=== PATIENT | male | born 1995 | race Caucasian/White ===

== ENCOUNTER 2024-02-17 08:27 | Emergency (ER) | payer BC, SELFPAY ==
[2024-02-17 08:28] VITALS: BP 132/77; PULSE 79; RESP 18; TEMP 36.2; O2SAT 100; BMI 25.2
[2024-02-17 08:32] VITALS: BP 132/77; PULSE 79; RESP 18; TEMP 36.2; O2SAT 100
--- NOTE | 2024-02-17 08:59 | EX.ED.UPPERE ---
HPI History of Present Illness Chief Complaint: Wound Narrative Narrative: 28-year-old male with redness and swelling to the left medial elbow. He noticed it on . He cannot recall any history of trauma to the area or bite. He states it was just a little red initially. He notes that it was more painful today and he notes some streaking up the medial aspect of his arm on the left. Patient states he does have any trouble moving his elbow except in full extension. He has not had any fever. Systemically he feels well. No significant medical history. PFSH PFSH Medical History no medical history Home Medications cephalexin 500 mg capsule 500 mg PO Q12 7 days #14 CAPSULES 02/17/24 [Rx Last Taken Unknown] sulfamethoxazole 800 mg-trimethoprim 160 mg tablet (Bactrim DS) 1 tab PO BID #14 tabs 02/17/24 [Rx Last Taken Unknown] Allergy/AdvReac Type Severity Reaction Status Date / Time No Known Allergies Allergy Verified 02/17/24 08:27 Social History Smoking Status: Never smoker ROS ROS ED Constitutional Constitutional ED: Denies chills, fever(s) or sweats Eyes Eyes: Denies blurry vision or change in vision ENT ENT ED: Denies ear pain or sore throat Cardiovascular Cardiovascular: Denies chest pain, palpitations or racing heartbeat Respiratory/Chest Respiratory/Chest: Denies cough, dyspnea or sputum Gastrointestinal Gastrointestinal: Denies abdominal pain, constipation, diarrhea, nausea or vomiting Genitourinary Genitourinary ED: Denies dysuria, hematuria or urinary frequency Musculoskeletal Musculoskeletal: Denies arthralgias, myalgias or neck pain Integumentary Reports rash; Denies abscess or Abrasions Neurologic Neurologic: Denies headache(s), paresthesias or weakness Psychiatric Psychiatric: Denies anxiety, depression, suicidal ideation or suicidal thoughts Endocrine Endocrinology: Denies polydipsia or polyuria EXAM Physical Exam Const Vital Signs: 02/17/24 08:28 02/17/24 08:32 Temperature 97.1 F L 97.1 F L Temperature Source Temporal Temporal Pulse Rate 79 79 Respiratory Rate 18 18 Blood Pressure 132/77 H 132/77 H Blood Pressure Mean 95 95 Pulse Ox 100 100 Oxygen Delivery Method Room Air Room Air Positive well nourished General Appearance ED: NAD HEENT Reports moist mucous membranes normocephalic Eyes PERRL and EOMs intact bilaterally Resp normal respiratory effort Cardio regular rate and regular rhythm Neuro oriented x3, CN's II-XII intact bilaterally, moves all extremities and no focal motor deficits Skin Skin Narrative: Erythematous rash noted over the medial aspect of the left elbow. This is just medial to the bursa. Patient has no short arc range of motion difficulties with the left elbow. There is lymphangitic streaking noted from the medial aspect of the elbow up into the brachial region. Mildly tender. There are some tender lymph nodes in this area. There is none in the axilla. Left arm neurovascular intact brisk cap refill to all 5 fingers. MDM MDM MDM Narrative Medical decision making narrative: Patient presenting with rash and pain to the left elbow. It does not appear to be infected joint he is moving it without any difficulty. He does not appear to be a part of the bursa. This started on and is progressed. Does not any systemic signs or symptoms. Will obtain a CBC, BMP, ESR, CRP. Patient given Toradol. Patient CBC shows a normal white blood cell count 5.2. Below 14.9. Platelets normal 171. Renal function and electrolytes are normal. CRP minimally elevated at 4.15. ESR less than 1. X-ray of the left elbow my interpretation shows no acute process. Radiology interprets and agrees. Patient given a dose of Zosyn in the ER. He is given Bactrim and Keflex for home. Wound care instructions and return precautions were discussed at length. Impression: 1. Cellulitis left elbow Lab Data Attestation: I reviewed the patient's lab results. Discharge Plan Triage Chief Complaint: Wound ED Provider: David Lubin Dx/Rx/DC Orders Instructions: ED Cellulitis Prescriptions: New sulfamethoxazole-trimethoprim [Bactrim DS] 800-160 mg tablet 1 tab PO BID Qty: 14 0RF cephalexin 500 mg capsule 500 mg PO Q12 7 Days Qty: 14 0RF Stand Alone Forms: ED Work / School Excuse Primary Care Provider: Care Physician,No Primary Referrals: NOT,DEFINED [Non-Staff] - Disposition Disposition: Home, Self Care Discharge Date/Time: 02/17/24 11:39
--- NOTE | 2024-02-17 09:00 | RAD_ITS ---
HISTORY: redness and swelling. TECHNIQUE: XR Elbow Min 3 Views. COMPARISON: None. FINDINGS: BONES : No acute fracture or cortical erosion identified. Small bone island incidentally noted in the capitellum. JOINTS: No dislocation. Joint spaces maintained. RAD/Elbow min 3 Views IMPRESSION: No acute osseous abnormality identified in the left elbow. Electronically Signed: Makenna Martin MD at 9:33 EDT ,
[2024-02-17 09:06] LABS: Absolute Lymphocyte Count 0.88 X10^3/uL (0.83-4.51); Absolute Neutrophil Count 3.7 X10^3/uL (2.0-7.7); Basophil# 0.03 X10^3/uL; Basophil% 0.6 % (0-1); Eosinophil# 0.05 X10^3/uL; Hematocrit 43.4 % (40-54); Hemoglobin 14.9 g/dL (13.0-16.5); Lymphocyte # 0.88 X10^3/ul (0.83-4.51); Lymphocyte % 16.9 % (19-41); Mean Corp Hgb Conc 34.3 g/dL (32-36); Mean Corpuscular Hgb 30.2 pg (27.0-32.0); Mean Platelet Vol. 10.3 fl (6.2-12.0); Monocyte# 0.51 X10^3/uL; Monocyte% 9.8 % (0-10); NRBC Flagged by Analyzer 0 % (0-5); Neutrophil # 3.72 X10^3/uL (2.7-7.7); Neutrophil % 71.5 % (47-70); Platelet Count 171 K/mm3 (150-450); RBC Distribution Width CV 11.9 % (11.6-14.6); RBC Distribution Width SD 38.5 fl (35.1-43.9); Red Blood Count 4.93 M/mm3 (4.6-6.2); White Blood Count 5.2 K/mm3 (4.4-11.0)
[2024-02-17 09:11] LABS: Erythrocyte Sedimentation Rate < 1 mm/hr (0-20)
[2024-02-17] MEDS: Ketorolac 15 MG/ML Vial IV (09:13)
[2024-02-17 09:18] LABS: Anion Gap 4 (5-15); BUN 19 mg/dL (7-18); BUN/Creat Ratio 20.9 RATIO (10-20); CRP 4.15 mg/L (0.0-3.0); Calcium,Total 8.9 mg/dL (8.5-10.1); Chloride 105 mmol/L (98-107); Creatinine, Serum 0.91 mg/dL (0.70-1.30); EST Glomerular Filtration Rate 104 mL/min (>60); Est Glom Filt Rate - Afr Amer 126 mL/min (>60); Estimated Creatinine Clearance 145.73 ml/min; Glucose 100 mg/dL (74-106); Potassium 3.8 mmol/L (3.5-5.1); Sodium Level 138 mmol/L (136-145)
[2024-02-17] MEDS: Piperacil/Tazobactam 3.375 GM in 0.9% Normal Saline (50mL MB+) 50 ML IV (10:14)
[2024-02-17 10:16] VITALS: BP 117/70; PULSE 50; RESP 16; O2SAT 100
[2024-02-17 11:38] VITALS: BP 111/76; PULSE 54; RESP 16; TEMP 36.2; O2SAT 100
== END 2024-02-17 11:39 | disposition home or self-care (01) ==
PROVIDERS: Emergency Provider Student in an Organized Health Care Education/Training Program; Visit Provider Student in an Organized Health Care Education/Training Program
DX: L03.114 Cellulitis of left upper limb (principal)
CPT/HCPCS: 73080; 80048; 85025; 85652; 86140; 96365; 96366; 96375; 99283; J7030; A4216

== ENCOUNTER 2025-02-12 19:31 | Emergency (ER) | payer BC, SELFPAY ==
[2025-02-12 19:32] VITALS: BP 141/88; PULSE 61; RESP 15; TEMP 36.4; O2SAT 100; BMI 25.2
--- NOTE | 2025-02-12 20:11 | US_ITS ---
PROCEDURE: TESTICULAR WITH ARTERIAL FLOW 02/12/2025 REASON FOR EXAM: LEFT TESTIC PAIN TECHNIQUE: Woodruff scale imaging of the scrotal contents. COMPARISON: None FINDINGS: RIGHT testicle: 5.5 x 3.3 x 3.0 cm Homogeneous echotexture. Normal vascularity. No intratesticular mass. Right epididymis: Unremarkable. LEFT testicle: 4.8 x 3.4 x 2.8 cm Homogeneous echotexture. Normal vascularity. No intratesticular mass. Left epididymis: Slightly heterogenous echotexture. Other findings: No hydrocele or large varicocele. US/Testicular with Arterial Flow IMPRESSION: NORMAL SCROTAL ULTRASOUND. Reading Location: [facility]
--- NOTE | 2025-02-12 20:11 | EX.ED.GUMALE ---
HPI History of Present Illness Chief Complaint: Male Pain/Injury Informant: patient and spouse/S.O. Narrative Narrative: 29-year-old male gradual onset left testicular pain for the last couple days. No problems urinating. No abdominal pain or flank pain or back pain with this. He woke up in a sweat feeling like maybe had a fever last couple nights, but felt fine during the day. He noticed that when he had on his boxer briefs the pain was less then when he was in the shower. No recent injury, but that is the sort of sensation he is having in his left testicle. No nausea or vomiting. No colicky nature of the pain. Never had this before. He states the small lump on top of the testicle feels like the area that the pain is coming from. PFSH PFSH Medical History no medical history no medical history Home Medications ?Medication ?Instructions ?Recorded ?Last Taken ?Type doxycycline monohydrate 100 mg 100 mg PO BID #20 CAPSULES 02/12/25 Unknown Rx capsule Allergy/AdvReac Type Severity Reaction Status Date / Time No Known Allergies Allergy Verified 02/12/25 19:32 Social History Smoking Status: Never smoker ROS ROS ED Constitutional Constitutional ED: Reports chills and sweats; Denies fever(s) Cardiovascular Cardiovascular: Denies chest pain Respiratory/Chest Respiratory/Chest: Denies dyspnea Gastrointestinal Gastrointestinal: Denies abdominal pain, nausea or vomiting Genitourinary Genitourinary ED: Reports scrotal pain; Denies dysuria, hematuria, penile discharge, penile swelling, scrotal swelling or urinary frequency Musculoskeletal Musculoskeletal: Denies back pain or neck pain Integumentary Denies abscess or rash Neurologic Neurologic: Denies headache(s), paresthesias or weakness EXAM Physical Exam Const Vital Signs: 02/12/25 19:32 02/12/25 20:57 Temperature 97.5 F L Temperature Source Temporal Pulse Rate 61 79 Respiratory Rate 15 18 Blood Pressure 141/88 H 138/81 H Blood Pressure Mean 105 100 Pulse Ox 100 100 Oxygen Delivery Method Room Air Room Air Positive well nourished and well developed General Appearance ED: well developed and NAD Eyes PERRL and EOMs intact bilaterally Neck supple Resp normal respiratory effort GI non-tender and non-distended Narrative: Examined patient while standing. There is no direct or indirect hernia. The testicle itself on both sides is nontender, there is a soft tender lump that feels like it is on the top and posterior aspect of the left testicle. Does not necessarily feel like a bag of worms. No blue dot sign. Back/Spine no CVA tenderness Extremity normal to inspection Neuro oriented x3, CN's II-XII intact bilaterally, moves all extremities, no focal motor deficits and no sensory deficits noted Psych mental status grossly normal Skin Lesions: no lesions Rashes: no rashes MDM MDM MDM Narrative Medical decision making narrative: Clinically my suspicion is that he has acute epididymitis. He is here with his significant other and is monogamous no history of gonorrhea chlamydia so I think that is less likely and testing for it is not necessary at this time. However in discussing more, he states it is possible that there is a small lump there that was not there before. For this reason I think obtaining a stat ultrasound is reasonable. Differential includes varicocele, hydrocele, epididymitis, less likely torsion or orchitis. I reviewed the ultrasound imaging as well as report which I agree with, it is essentially normal, noting that the left epididymis is slightly heterogeneous in echotexture. The most important part of the ultrasound is that there were no hydrocele or varicocele seen and the testes are normal. Patient reassured, clinically and treating him for epididymitis with doxycycline and we will fill the prescription here for him to start it tonight. He was also given some ibuprofen he is comfortable with this plan and following up with urology if it does not get better. Lab Data Attestation: I reviewed the patient's lab results. Labs: Laboratory Results - last 24 hr 02/12/25 20:01 Urine Color Yellow Urine Clarity Clear Urine pH 5.0 Ur Specific [place] 1.025 Urine Protein 30 H Urine Glucose (UA) Normal Urine Ketones 5 H Urine Occult Blood Negative Urine Nitrite Negative Urine Bilirubin Negative Urine Urobilinogen 1 H Ur Leukocyte Esterase Negative Urine RBC 0 SEEN Urine WBC 0-5 SEEN Ur Squamous Epith Cells 0-5 SEEN Urine Bacteria 0 SEEN Urine Mucus 0 SEEN Radiography Diagnostic Testing: Clinical Impression(s) from Imaging Studies Testicular Ultrasound 02/12/25 20:11 IMPRESSION: NORMAL SCROTAL ULTRASOUND. Reading Location: [facility] Discharge Plan Triage Chief Complaint: Male Pain/Injury ED Provider: Jagjit Cuellar Dx/Rx/DC Orders Clinical Impression: Left epididymitis Instructions: Epididymitis Dc Prescriptions: New doxycycline monohydrate 100 mg capsule 100 mg PO BID Qty: 20 0RF Discontinued sulfamethoxazole-trimethoprim [Bactrim DS] 800-160 mg tablet 1 tab PO BID Qty: 14 0RF cephalexin 500 mg capsule 500 mg PO Q12 7 Days Qty: 14 0RF Primary Care Provider: Care Physician,No Primary Referrals: Marcial Olmos MD [[facility] Staff - Active Staff] - 1 Week if not improving Print Language: Mosotho Disposition Disposition: Home, Self Care
[2025-02-12 20:26] LABS: Bacteria 0 SEEN /hpf (None Seen); Mucous, Urine 0 SEEN /hpf (<or=2+); Red Blood Cells-Urine 0 SEEN /hpf (0-5)
[2025-02-12 20:31] LABS: Color, Urine Yellow (Yellow); Glucose, Dipstick Normal (Normal); Ketone-Dipstick 5 mg/dl (Negative); Leukocyte Esterase-Dipstick Negative /ul (Negative); Nitrite-Dipstick Negative (Negative); Occult Blood-Urine Negative /ul (Negative); Protein-Dipstick 30 mg/dl (Negative); Specific Gravity, Urine 1.025 (1.002-1.030); Urine Bilirubin Dipstick Negative (Negative); Urine Clarity Clear (Clear); Urine Urobilinogen 1 mg/dl (Normal)
[2025-02-12 20:54] LABS: Squamous Epithelial Cells - UA 0-5 SEEN /hpf (0-5); White Blood Cells 0-5 SEEN /hpf (0-5)
[2025-02-12 20:57] VITALS: BP 138/81; PULSE 79; RESP 18; O2SAT 100
[2025-02-12] MEDS: Ibuprofen 600 MG Tablet PO (21:50)
[2025-02-12 21:53] VITALS: BP 132/78; PULSE 77; RESP 18; TEMP 36.8; O2SAT 100
== END 2025-02-12 22:12 | disposition home or self-care (01) ==
PROVIDERS: Emergency Provider Emergency Medicine; Visit Provider Emergency Medicine
DX: N45.1 Epididymitis (principal)
CPT/HCPCS: 76870; 81001; 93976; 99282

== ENCOUNTER → 2025-03-30 | Outpatient (CLI) | payer BC, SELFPAY ==
--- OUTSIDE RECORDS SUMMARY | 2025-03-30 10:05 | XMS RPT_ITS | CCD ---
Author Organization [facility] Care Team Providers Care Ranch Hand Supervisor Name Role Phone Unavailable Primary Care Provider Unavailabl e Care Physician, No Primary Referring Unava ilJosé Pedersen Attending Unavailable Care Physician, No Primary Primary Care Unava ilable Care Physician, No Primary Primary Care Unava ilable Jagjit Cuellar Attending Unavailable Medications Current Medications Medication Drug Class(es) Dates Sig (Normalized) Sig (Original) cephalexin 500 mg oral capsule (1 source) Cephalosporin Antibacterial Start: 02-17-2024 take 500 mg by mouth every twelve hours Cephalexin Active 500 MG PO EVERY 12 HOURS 14 February 17, 2024 12:00am esomeprazole 40 mg delayed release oral capsule (1 source) Proton Pump Inhibitor Start: 10-29-2020 take 1 capsule by mouth once daily before breakfast esomeprazole (NEXIUM) 40 mg capsule Indications: Chest pain, unspecified type , SOB (shortness of breath) Take 1 capsule by mouth daily before breakfast. 30 capsule 2 10/29/2020 Active sulfamethoxazole 800 mg / trimethoprim 160 mg oral tablet (1 source) Dihydrofolate Reductase Inhibitor Antibacterial, Sulfonamide Antimicrobial Start: 02-17-2024 take 1 tablet by mouth twice daily Sulfamethoxazole- Trimethoprim (Bactrim Ds) 800-160 mg tablet Active 1 TABLET PO TWICE A DAY February 17, 2024 12:00am SUMAtriptan 50 mg oral tablet (1 source) Serotonin-1b and Serotonin-1d Receptor Agonist Start: 09-05-2019 SUMAtriptan (IMITREX) 50 mg tablet Take 50 mg by mouth as needed. 0 09/05/2019 Active Problems Active Problems Problem Classification Problem Date Documented Da te Episodic/Chronic Headache; including migraine (1 source) Migraine; Translations: [Migraine, unspecified, not intractable, without status migrainosus] Onset: 11-18-2019 11-18-2019 Chronic Other male genital disorders (1 source) Left testicular pain; Translations: [Left testicular pain] Onset: 02-16-2025 Episodic Skin and subcutaneous tissue infections (1 source) Infection of skin; Translations: [Local infection of the skin and subcutaneous tissue, unspecified] 02-17-2024 Episodic Past or Other Problems Problem Classification Problem Date Documented Da te Episodic/Chronic Nonspecific chest pain (1 source) Chest pain; Translations: [Chest pain, unspecified] Onset: 09-29-2020 09-29-2020 Episodic Other skin disorders (1 source) Scar; Translations: [Scar conditions and fibrosis of skin] Onset: 04-01-2014 04-01-2014 Episodic Other skin disorders (1 source) Acne; Translations: [Acne, unspecified] Onset: 04-01-2014 04-01-2014 Episodic Spondylosis; intervertebral disc disorders; other back problems (1 source) Low back pain; Translations: [Right-sided low back pain without sciatica] Onset: 05-27-2015 05-27-2015 Episodic Results Test Name Value Interpretation Reference Range Facility Emergency Department Summary on 02-12-2025 Emergency Department Summary [facility] Medical Records Department [address] [place] [address] Emergency Department Summary 02/12/25 MR#: [id number] Acct: [id number] Name: TIFFANIE BRAVO Rep #: [id number] : 1995 29 From: Jagjit Cuellar MD PCP: Care Physician,No Primary Status:REG ER Location: ED HPI History of Present Illness Chief Complaint: Male Pain/Injury Informant: patient and spouse/S.O. Narrative Narrative: 29-year-old male gradual onset left testicular pain for the last couple days. No problems urinating. No abdominal pain or flank pain or back pain with this. He woke up in a sweat feeling like maybe had a fever last couple nights, but felt fine during the day. He noticed that when he had on his boxer briefs the pain was less then when he was in the shower. No recent injury, but that is the sort of sensation he is having in his left testicle. No nausea or vomiting. No colicky nature of the pain. Never had this before. He states the small lump on top of the testicle feels like the area that the pain is coming from. [facility] Medical History no medical history no medical history Home Medications ???Medication ???Instructions ???Recorded ???Last Taken ???Type doxycycline monohydrate 100 mg 100 mg PO BID #20 CAPSULES 5 Unknown Rx capsule Allergy/AdvReac Type Severity Reaction Status Date / Time No Known Allergies Allergy Verified 02/12/25 19:32 Social History Smoking Status: Never smoker ROS ROS ED Constitutional Constitutional ED: Reports chills and sweats; Denies fever(s) Cardiovascular Cardiovascular: Denies chest pain Respiratory/Chest Respiratory/Chest: Denies dyspnea Gastrointestinal Gastrointestinal: Denies abdominal pain, nausea or vomiting Genitourinary Genitourinary ED: Reports scrotal pain; Denies dysuria, hematuria, penile discharge, penile swelling, scrotal swelling or urinary frequency Musculoskeletal Musculoskeletal: Denies back pain or neck pain Integumentary Denies abscess or rash Neurologic Neurologic: Denies headache(s), paresthesias or weakness EXAM Physical Exam Const Vital Signs: 02/12/25 19:32 02/12/25 20:57 Temperature 97.5 F L Temperature Source Temporal Pulse Rate 61 79 Respiratory Rate 15 18 Blood Pressure 141/88 H 138/81 H Blood Pressure Mean 105 100 Pulse Ox 100 100 Oxygen Delivery Method Room Air Room Air Positive well nourished and well developed General Appearance ED: well developed and NAD Eyes PERRL and EOMs intact bilaterally Neck supple Resp normal respiratory effort GI non-tender and non-distended Narrative: Examined patient while standing. There is no direct or indirect hernia. The testicle itself on both sides is nontender, there is a soft tender lump that feels like it is on the top and posterior aspect of the left testicle. Does not necessarily feel like a bag of worms. No blue dot sign. Back/Spine no CVA tenderness Extremity normal to inspection Neuro oriented x3, CN's II-XII intact bilaterally, moves all extremities, no focal motor deficits and no sensory deficits noted Psych mental status grossly normal Skin Lesions: no lesions Rashes: no rashes MDM MDM MDM Narrative Medical decision making narrative: Clinically my suspicion is that he has acute epididymitis. He is here with his significant other and is monogamous no history of gonorrhea chlamydia so I think that is less likely and testing for it is not necessary at this time. However in discussing more, he states it is possible that there is a small lump there that was not there before. For this reason I think obtaining a stat ultrasound is reasonable. Differential includes varicocele, hydrocele, epididymitis, less likely torsion or orchitis. I reviewed the ultrasound imaging as well as report which I agree with, it is essentially normal, noting that the left epididymis is slightly heterogeneous in echotexture. The most important part of the ultrasound is that there were no hydrocele or varicocele seen and the testes are normal. Patient reassured, clinically and treating him for epididymitis with doxycycline and we will fill the prescription here for him to start it tonight. He was also given some ibuprofen he is comfortable with this plan and following up with urology if it does not get better. Lab Data Attestation: I reviewed the patient's lab results. Labs: Laboratory Results - last 24 hr 02/12/25 20:01 Urine Color Yellow Urine Clarity Clear Urine pH 5.0 Ur Specific [place] 1.025 Urine Protein 30 H Urine Glucose (UA) Normal Urine Ketones 5 H Urine Occult Blood Negative Urine Nitrite Negative Urine Bilirubin Negative Urine Urobilinogen 1 (more content not included)... Normal [facility] Testicular with Arterial Keron won 02-12-2025 Testicular with Arterial Flow [facility] Imaging Services [address] [place], [place] [address] Testicular with Arterial Flow MR#: [id number] Acct: [id number] Name: TIFFANIE BRAVO Rep #: [id number] : 1995 M 29 From: Daniel bravo MD PCP: Care Physician,No Primary Status: REG ER Study: Testicular with Arterial Flow Date of Exam: Exam# [id number] Ordering Dr: Jagjit Cuellar MD PROCEDURE: TESTICULAR WITH ARTERIAL FLOW 02/12/2025 REASON FOR EXAM: LEFT TESTIC PAIN TECHNIQUE: Woodruff scale imaging of the scrotal contents. COMPARISON: None FINDINGS: RIGHT testicle: 5.5 x 3.3 x 3.0 cm Homogeneous echotexture. Normal vascularity. No intratesticular mass. Right epididymis: Unremarkable. LEFT testicle: 4.8 x 3.4 x 2.8 cm Homogeneous echotexture. Normal vascularity. No intratesticular mass. Left epididymis: Slightly heterogenous echotexture. Other findings: No hydrocele or large varicocele. US/Testicular with Arterial Flow IMPRESSION: NORMAL SCROTAL ULTRASOUND. [facility] CC: Dr. Jagjit Cuellar MD; No Primary Care Physician Truss Builder: Signed Normal [facility] Urinalysis, Completeon 02-12 EPI,SQUAMOUS 0-5 SEEN Normal 0-5 [facility] Comment on above: Order Comment: CLEAN CATCH Performed By: #### L [id number] #### [facility] [address] [place], [address] WBC 0-5 SEEN Normal 0-5 [facility] Comment on above: Order Comment: CLEAN CATCH Performed By: #### L [id number] #### [facility] [address] [place], [address] BACTERIA 0 SEEN Normal None Seen [facility] Comment on above: Order Comment: CLEAN CATCH Performed By: #### L 400.0001 #### [facility] [address] [place], [address] Mucus Ql (Urine sed) 0 SEEN Normal [facility] Comment on above: Order Comment: CLEAN CATCH Performed By: #### L 400.0001 #### [facility] [address] [place], [address] RBC 0 SEEN Normal 0-5 [facility] Comment on above: Order Comment: CLEAN CATCH Performed By: #### L 400.0001 #### [facility] [address] [place], [address] Absolute lymphocyte countOrd ered By: David Lubin on 02-17-2024 Lymphocytes Auto (Unsp spec) [#/Vol] 0.88 10*3/uL 0.83-4.51 [facility] Automated lymphocyte count a s percentage of total leukocytesOrdered By: David Lubin on 02-17-2024 Lymphocytes/100 WBC Auto (Unsp spec) 16.9 % 19-41 [facility] Basophil percentageOrdered B y: David Lubin on 02-17-2024 Basophils/100 WBC (Bld) 0.6 % 0-1 [facility] Chloride [Moles/Vol] 105 mmol/L 98-107 [facility] Eosinophils/100 WBC (Bld) 1.0 % 0-5 [facility] Glucose [Mass/Vol] 100 mg/dL 74-106 [facility] Comment on above: Fasting Glucose resu lt from 100 to 125 mg/dL suggests IMPAIRED HOMEOSTASIS per A.D.A. criteria. Hemoglobin (Bld) [Mass/Vol] 14.9 g/dL 13.0-16.5 [facility] Monocytes/100 WBC (Bld) 9.8 % 0-10 [facility] Neutrophils (Bld) [#/Vol] 3.7 10*3/uL 2.0-7.7 [facility] Neutrophils/100 WBC (Bld) 71.5 % 47-70 [facility] Potassium [Moles/Vol] 3.8 mmol/L 3.5-5.1 [facility] Sodium [Moles/Vol] 138 mmol/L 136-145 [facility] WBC (Bld) [#/Vol] 5.2 10*3/uL 4.4-11.0 [facility] CNOVon 02-17-2024 CNOV Office Visit (UCWSTR ) TIFFANIE BRAVO ([id number]) 1995 M Date Time Provider Department 02/17/24 8:15 AM ANJALI SAAB [facility] During your visit today, we recorded the following information about you: Anjali Saab APRN.CNP 02/17/2024 12:08 PM Signed Patient triaged at [facility]. Here today d/t left arm infection. Left elbow red/swollen, large red streak reaching axilla. I will refer to ER. Patient in no apparent distress. Allergies As of Date: 02/17/2024 (No Known Allergies) Date Reviewed: 09/29/2020 Reviewed by: Yaritza Velázquez ([facility]) - Fully Assessed Primary Visit Diagnosis:Skin infection [L08.9] Prescriptions as of 02/17/2024 - esomeprazole (NEXIUM) 40 mg capsule Take 1 capsule by mouth daily before breakfast. - SUMAtriptan (IMITREX) 50 mg tablet Take 50 mg by mouth as needed. Problem List As Of Date 02/17/2024 Noted Resolved Scars [L90.5] 04/01/2014 Acne [L70.9] 04/01/2014 Right-sided low back pain without sciatica [M54*05/27/2015 Migraine without status migrainosus, not intrac*11/18/2019 Chest pain [R07.9] 09/29/2020 Encounter Status:Closed by ANJALI SAAB on 02/17/24 Normal [facility] Determination of erythrocyte mean corpuscular volume (MCV)Ordered By: David Lubin on 02-17-2024 MCV (RBC) [Entitic vol] 88.0 fL 80-94 [facility] Erythrocyte distribution wid th ratioOrdered By: David Lubin on 02-17-2024 Erythrocyte distribution width (RBC) [Ratio] 11.9 % 11.6-14.6 [facility] Erythrocyte distribution wid th standard deviationOrdered By: David Lubin on 02-17-2024 Erythrocyte distribution width (RBC) [Entitic vol] 38.5 fL 35.1-43.9 [facility] Erythrocyte sedimentation ra teOrdered By: David Lubin on 02-17-2024 ESR (Bld) [Velocity] mm/h 0-20 [facility] Hematocrit Auto (Bld) [Volum e fraction]Ordered By: David Lubin on 02-17-2024 Hematocrit (Bld) [Volume fraction] 43.4 % 40-54 [facility] Immature granulocytes/100 WB C Auto (Bld)Ordered By: David Lubin on 02-17-2024 Immature granulocytes/100 WBC (Bld) 0.200 % 0.0-0.9 [facility] Comment on above: IG% - Immature Granu locytes (promyelocytes, myelocytes and metamyelocytes) > 1% indicates that a LEFT SHIFT is Present. Laboratory - Chemistry and C hemistry - challengeOrdered By: David Lubin on 02-17-2024 CO2 [Moles/Vol] 29.0 mmol/L 21.0-32.0 [facility] Urea nitrogen/Creatinine [Mass ratio] 20.9 mg/mg 10-20 [facility] Laboratory - Hematology and Cell countsOrdered By: David Lubin on 02-17-2024 MCH (RBC) [Entitic mass] 30.2 pg 27.0-32.0 [facility] MCHC (RBC) [Mass/Vol] 34.3 g/dL 32-36 [facility] Nucleated RBC/100 WBC (Bld) [Ratio] 0 % 0-5 [facility] Platelet mean volume (Bld) [Entitic vol] 10.3 fL 6.2-12.0 [facility] Platelets (Bld) [#/Vol] 171 10*3/uL 150-450 [facility] No Panel InformationOrdered By: David Lubin on 02-17-2024 C-Reactive Protein Extended Range 4.15 mg/L 0.0-3.0 [facility] Comment on above: C-Reactive Protein ( CRP) provides useful information for thediagnosis, therapy and monitoring of inflammatory processesand associated diseases. For the evaluation of Relative Riskfor Cardiovascular Disease, a High Sensitivity CRP (HSCRP)should be ordered. Estimated Creatinine Clearance Calc 145.73 ml/min [facility] Estimated GFR (MDRD) Amer 126 mL/min >60 [facility] Comment on above: GFR Calc Estimated GFR (MDRD) Non-Af Amer 104 mL/min >60 [facility] Comment on above: Non- GFR Calc RBC Auto (Bld) [#/Vol]Ordere d By: David Lubin on 02-17-2024 RBC (Bld) [#/Vol] 4.93 10*6/uL 4.6-6.2 [facility] Serum or plasma calcium roger urement (mass/volume)Ordered By: David Lubin on 02-17-2024 Calcium [Mass/Vol] 8.9 mg/dL 8.5-10.1 [facility] Serum or plasma creatinine m easurement (mass/volume)Ordered By: David Lubin on 02-17-2024 Creatinine [Mass/Vol] 0.91 mg/dL 0.70-1.30 [facility] Comment on above: The validity of the calculated GFR & GFRAA in patients over 70 years has not been determined. Clinical correlation is essential. Serum or plasma urea nitroge n measurement (mass/volume)Ordered By: David Lubin on 02-17-2024 Urea nitrogen [Mass/Vol] 19 mg/dL 7-18 [facility] Thin prep Papanicolaou smear with manual screeningOrdered By: David Lubin on 02-17-2024 Thin prep Papanicolaou smear with manual screening 4 5-15 [facility] FC CHEST (TWO VIEWS)on 09-29 FC CHEST (TWO VIEWS) [place] [address] Name: MONIKA BRAVO Phys: CLAUDINE HINOJOSA C.N.P. : [birth year] Age: 24 Sex: M Acct: [id number] Loc: [id number] Exam Date: 09/29/20 Status: REG POV Radiology No.: Unit Number: [id number] Exam # Type/Exam [id number] [facility] / FC CHEST (TWO VIEWS) Procedure: XR CHEST 2 VIEWS Clinical: Chest tightness TECHNIQUE: 2 views COMPARISON: None. FINDINGS: Cardiomediastinum: The cardiomediastinal silhouette is normal. Lungs: The lungs are clear. There is no evidence of a pleural effusion. Pneumothorax: None. Osseous: There is no acute osseous pathology. Impression: No evidence for active cardiopulmonary disease. Electronically signed by: Nataliia Goodman MD 09/29/2020 12:40 PM BACKPACKERS MANAGER < > Reported By: NATALIIA GOODMAN M.D. Signed In PowerScribe By: NATALIIA GOODMAN M.D. << Signature on File>> Reported By: NATALIIA GOODMAN M.D. Signed By: NATALIIA GOODMAN M.D. Tests performed at: [place] [address] [facility] 09-17-2019 [facility] DATE OF SERVICE: 01/2019 HISTORY OF PRESENT ILLNESS: Patient is a 23-year-old male who injured his left hand on a nail (it was a miriam nail) while he was working at home. He cleaned it out with peroxide and washed it really good. He came in because he is unsure of when his last tetanus. This happened last night. ALLERGIES: No allergies. PHYSICAL EXAMINATION: Vital Signs: Blood pressure 132/83, pulse 54, respirations 18, temperature 97.9. Pulse oximetry 99%. No pain. General: He is alert and oriented x3. His upper extremities are examined, all within normal limits with the exception of the left hand shows a slight puncture hole that has no surrounding erythema at this point in time. No foreign body is noted. No other abnormalities. Normal range of motion. Normal sensation. DIAGNOSIS: Nail puncture. PLAN: Patient was given a Tdap vaccine, also given a prescription for Keflex for symptoms of dirty nail, twice a day for 7 days. Follow up as needed. He acknowledged and understood. Melissa Milligan PA-C [id number] [facility] PATIENT NAME: TIFFANIE BRAVO [address] [place] MEDICAL REC #: [id number] [place] [address] JONATHAN [facility] REPORT [facility]ARE PHYSICIAN SSI File#: [id number] END OF DOCUMENT / CHANGE LOG FOLLOWS Last Edited By Tomas. Signed By Melissa Milligan PAC #PRICH Melissa Milligan PAC #PRICH on 09/28/2019 15:05 ET on 09/28/2019 15:05 ET Revision Number - 2 Verified/Reviewed by 09/28/19 9922 LUIS ENRIQUE [facility] PATIENT NAME: DANELLE BRAVOCECIL Fabricio [address] [place] MEDICAL REC #: [id number] [place] [address] [facility] REPORT STAT[facility]ARE PHYSICIAN Normal [facility] STATCARE REPORT Normal [facility] ED PROV NOTEon 09-06-2019 ED PROV NOTE HNO ID: [id number] Author: Sb Salcido Service: ? Author Type: Physician Type: ED Provider Notes Filed: 09/06/2019 3:32 PM Note Text: [place] [address] HEALTH INFORMATION MANAGEMENT EMERGENCY DEPARTMENT REPORT Patient: SHELLYSB VIEIRA M.D. [id number] [birth year] 23 M Status: DEP ER ED Date of Service: 09/05/19 CHIEF COMPLAINT: Headache and vomiting. HISTORY OF PRESENT ILLNESS: A 23-year-old male brought in today with the above complaint. History of migraines. This headache he woke up with this morning. It is pancephalic and involves his whole head. He describes it as throbbing. He has noticed some tingling and numbness on his right side of his face, arm and leg. He has had this several times with headaches as well. He has a strong family history for headaches and his dad had headaches as well like this. No other complaints. He has been nausea and vomiting with it. No fever. REVIEW OF SYSTEMS: No fevers, chills, or other constitutional symptoms. No visual acuity problems or problems with ears, nose, mouth, throat. Denies any productive cough or cold symptoms. No bright red blood per rectum. No melena. No urinary symptoms. No extremity edema swelling. He has had tingling on the right side. No weakness. No problems with bowels or bladder. No other complaints. Review of systems otherwise negative. PAST MEDICAL HISTORY: Migraines. MEDICATIONS: As listed. ALLERGIES: As listed. FAMILY HISTORY: Father with migraine. SOCIAL HISTORY: Does not use drugs. Occasional alcohol. He is . No tobacco. PHYSICAL EXAMINATION: GENERAL: A well-nourished, well-developed male, awake, alert, currently not in acute distress. VITAL SIGNS: As charted. HEENT: Atraumatic and normocephalic. The oropharynx is moist. NECK: Supple. No adenopathy or thyromegaly. No JVD. CARDIOVASCULAR: Regular rate and rhythm. No murmurs, rubs, or gallops. LUNGS: Clear to auscultation bilaterally. ABDOMEN: Soft, nontender, nondistended. Bowel sounds positive. EXTREMITIES: No clubbing or cyanosis. No edema. NEUROLOGIC: He is neurologically awake, alert, and oriented to person, place, and date. Moving all 4 extremities equally. Reflexes 2+, symmetric. Toes are downgoing. There is no pronator drift. There is normal lbxcpb-ra-hcoa and normal cahn-ts-dltr. EMERGENCY DEPARTMENT COURSE: He was sent for CT of the brain, which was negative. He was given IV Compazine, Benadryl, fluid, but did not really get much relief with this. He was given additional Dilaudid but got nauseated, although his headache was better at that point. CLINICAL DIAGNOSIS: Complex migraine. DISPOSITION AND PLAN: Discharged home in much improved with regard to the pain after IV fluids and pain medications. He is going to be given a prescription for Imitrex and referred to follow up with the family practice doctor and can return if worse or problems of any kind. Report#: Dict ID [id number] / Int ID [id number] 09/06/19 1530 SB SALCIDO M.D. cc: SB SALCIDO M.D. << Signature on File>> Reported By: SB SALCIDO M.D. Signed By: SB SALCIDO M.D. Tests performed at: [address] [address] Normal [facility] EMERGENCY DEPARTMENT REPORTo n 09-06-2019 EMERGENCY [place] [address] HEALTH INFORMATION MANAGEMENT EMERGENCY DEPARTMENT REPORT Patient: MONIKA BRAVO SB SALCIDO M.D. [id number] [birth year] 23 M Status: [facility] ER ED Date of Service: 09/05/19 CHIEF COMPLAINT: Headache and vomiting. HISTORY OF PRESENT ILLNESS: A 23-year-old male brought in today with the above complaint. History of migraines. This headache he woke up with this morning. It is pancephalic and involves his whole head. He describes it as throbbing. He has noticed some tingling and numbness on his right side of his face, arm and leg. He has had this several times with headaches as well. He has a strong family history for headaches and his dad had headaches as well like this. No other complaints. He has been nausea and vomiting with it. No fever. REVIEW OF SYSTEMS: No fevers, chills, or other constitutional symptoms. No visual acuity problems or problems with ears, nose, mouth, throat. Denies any productive cough or cold symptoms. No bright red blood per rectum. No melena. No urinary symptoms. No extremity edema swelling. He has had tingling on the right side. No weakness. No problems with bowels or bladder. No other complaints. Review of systems otherwise negative. PAST MEDICAL HISTORY: Migraines. MEDICATIONS: As listed. ALLERGIES: As listed. FAMILY HISTORY: Father with migraine. SOCIAL HISTORY: Does not use drugs. Occasional alcohol. He is . No tobacco. PHYSICAL EXAMINATION: GENERAL: A well-nourished, well-developed male, awake, alert, currently not in acute distress. VITAL SIGNS: As charted. HEENT: Atraumatic and normocephalic. The oropharynx is moist. NECK: Supple. No adenopathy or thyromegaly. No JVD. CARDIOVASCULAR: Regular rate and rhythm. No murmurs, rubs, or gallops. LUNGS: Clear to auscultation bilaterally. ABDOMEN: Soft, nontender, nondistended. Bowel sounds positive. EXTREMITIES: No clubbing or cyanosis. No edema. NEUROLOGIC: He is neurologically awake, alert, and oriented to person, place, and date. Moving all 4 extremities equally. Reflexes 2+, symmetric. Toes are downgoing. There is no pronator drift. There is normal qugsrl-fg-squo and normal lqcj-ck-gpgs. EMERGENCY DEPARTMENT COURSE: He was sent for CT of the brain, which was negative. He was given IV Compazine, Benadryl, fluid, but did not really get much relief with this. He was given additional Dilaudid but got nauseated, although his headache was better at that point. CLINICAL DIAGNOSIS: Complex migraine. DISPOSITION AND PLAN: Discharged home in much improved with regard to the pain after IV fluids and pain medications. He is going to be given a prescription for Imitrex and referred to follow up with the family practice doctor and can return if worse or problems of any kind. Report#: Dict ID [id number] / Int ID [id number] 09/06/19 1530 SB SALCIDO M.D. cc: SB SALCIDO M.D. << Signature on File>> Reported By: SB SALCIDO M.D. Signed By: SB SALCIDO M.D. Tests performed at: [address] [address] Normal [facility] CT BRAIN WITHOUT CONTRAST- C TBon 09-05-2019 CT BRAIN WITHOUT CONTRAST- CTB [address] [address] Name: MONIKA BRAVO Phys: SB SALCIDO M.D. : [birth year] Age: 23 Sex: M Acct: [id number] Loc: ED Exam Date: 09/05/19 Status: REG ER Radiology No.: [id number] Unit Number: [id number] Exam # Type/Exam [id number] CT / CT BRAIN WITHOUT CONTRAST- CTB CT HEAD WITHOUT IV CONTRAST CLINICAL STATEMENT: Headache, vomiting, visual disturbance. TECHNIQUE: Axial CT images from skull base to vertex without IV contrast. This exam was performed according to our departmental dose optimization program, and includes the following measures where applicable: automated exposure control, adjustment of the mAs and/or kVp according to patient size and/or exam, and an iterative reconstruction algorithm. COMPARISON: None. FINDINGS: There is no acute intracranial hemorrhage, mass, mass effect or abnormal extra-axial fluid collection. No evidence of an acute territorial infarct is identified. The ventricles are normal. The skull base and calvarium demonstrate no abnormality. The included paranasal sinuses are clear. Included mastoid air cells are clear. IMPRESSION: No acute intracranial abnormality. 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 Signed In PowerScribe By: BRIDGETTE DOUGLAS M.D. << Signature on File>> Reported By: BRIDGETTE DOUGLAS M.D. Signed By: BRIDGETTE DOUGLAS M.D. Tests performed at: [address] [address] Normal [facility] Vital Signs Date Time Vital Sign Value Performing Clinician Sandhya flores 02-17-2024 11:38-0400 Body temperature 97.1 [degF] [facility] 02-17-2024 11:38-0400 Diastolic blood pressure 76 mm[Hg] [facility] 02-17-2024 11:38-0400 Heart rate 54 /min [facility] 02-17-2024 11:38-0400 Respiratory rate 16 /min [facility] 02-17-2024 11:38-0400 SaO2% (BldA) [Mass fraction] 100 % [facility] 02-17-2024 11:38-0400 Systolic blood pressure 111 mm[Hg] [facility] 02-17-2024 08:28-0400 Body height 193.04 cm [facility] 02-17-2024 08:28-0400 Body mass index (BMI) [Ratio] 25.2 kg/m2 [facility] 02-17-2024 08:280400 Body weight 93.93 kg [facility] Hospital Encounters Encounter Date Encounter Type Care Provider Facility Start: 04-10-2025 ambulatory No Primary Car e Physician Facility:[facility] Start: 02-12-2025 End: 02-12-2025 Emergency department patient visit No Primary Care Physician Facility:[facility] Start: 02-17-2024 End: 02-17-2024 ambulatory Facility:[facility] Start: 02-17-2024 End: 02-17-2024 Emergency department patient visit [facility] Work Phone: Start: 02-17-2024 End: 02-17-2024 Patient encounter procedure Anjali Saab APRN.CNP Work Phone: [facility] Care Comment on above: Skin infection (Prim noah Dx) Procedures Date Procedure Procedure Detail Performing Clinician Start: 02-17-2024 Plain x-ray of elbow Plan of Treatment Date Care Activity Detail Author Start: 09-17-2029 Urine microalbumin profile DTaP,Tdap,Td Vaccine (2 - Td or Tdap) [facility] Start: 06-15-2024 Influenza vaccination Influenz a Vaccine (Season Ended) [facility] Start: 10-15-2023 Behavioral Health Screening Behavioral Health Screening [facility] Start: 06-15-2023 Covid-19 Vaccine ( season) Covid-19 Vaccine ( season) [facility] Start: 2012 Hepatitis B Vaccine (1 of 3 - 19+ 3-dose series) Hepatitis B Vaccine (1 of 3 - 19+ 3-dose series) [facility] Start: 2011 Hepatitis C screening Hepatitis C Sc reening [facility] Start: 2011 HIV screening HIV Screening [facility] Patient Education ED Cellulitis [facility] Work Phone: Patient referral [facility] Work Phone: Immunizations Immunization Date Immunization Notes Care Provider Fa cility 10-16-2019 Seasonal, quadrivale nt, recombinant, injectable influenza vaccine, preservative free Anjali Saab APRN.INSTALLATION TECH Work Phone: [facility] 10-16-2019 influenza virus vacc ine, unspecified formulation Anjali Saab LOTTIE.INSTALLATION TECH Work Phone: [facility] 09-17-2019 tetanus toxoid, redu lupis diphtheria toxoid, and acellular pertussis vaccine, adsorbed Anjali Saab LOTTIE.INSTALLATION TECH Work Phone: [facility] Payers Date Payer Category Payer Self-pay 2022 Unknown [id number] 2022 Unknown MARANDA KINNEY PPO [id number] 2022-Present [phone] [address] [place] [address] PPO [id number] Unknown [employer] TPA [id number] Unknown [id number] Unknown [id number] Social History Date Type Detail Facility Start: 02-17-2024 Tobacco smoking stat [facility] Unknown if ever smoked [facility] Start: 1995 Sex Assigned At Male [facility] Start: 11-18-2019 [facility] Start: 11-18-2019 Tobacco use and exposure Smokeless tobacco non-user [facility] Start: 09-29-2020 Alcohol intake Current drinke r of alcohol (finding) [facility] Start: 09-22-2020 End: 09-29-2020 History of Social function [facility] Start: 09-22-2020 End: 09-29-2020 Tobacco use panel [facility] Adult Depression Screening Assessment 0 [facility] Start: 11-18-2019 Alcohol Comment Occasional [facility] Start: 1995 Sex Assigned At Not on file [facility] Progress note 02-17-2024 Note Date & Type Note Facility 02-17-2024 Note HNO ID: [id number] Author: ANJALI SAAB APRN.ALEXANDRA Service: ? Author Type: Nurse Practitioner Type: Progress Notes Filed: 02/17/2024 12:08 Note Text: Patient tri[facility] at [facility]. Here today d/t left arm infection. Left elbow red/swollen, large red streak reaching axilla. I will refer to ER. Patient in no apparent distress. [facility] History of Present illness Narrative 02-17-2024 Anjali Saab APRN.CNP - 02/17/2024 12:06 PM EDT Note Date & Type Note Facility 02-17-2024 History of Presen t illness Narrative Patient triaged at [facility]. Here today d/t left arm infection. Left elbow red/swollen, large red streak reaching axilla. I will refer to ER. Patient in no apparent distress. documented in this encounter [facility] Evaluation note Note Date & Type Note Facility Evaluation note No assessment information availa [facility] Work Phone: Evaluation note Note Date & Type Note Facility Evaluation note Diagnosis Skin infection- Primary Unspecified local infection of skin and subcutaneous tissue documented in this encounter [facility] Summary Purpose Family History No Family History Records FoundNo Family History Records FoundNo Family History Records FoundNo Family History Records FoundNo Family History Records FoundNo Family History Records Found Advance Directives No Advanced Directives Records Found Advance Directive Response Recorded Date/ Time Living Will No February 17, 2024 8: 44am Power of [employer] Attendant No February 17, 2024 8:44am Chief Complaint and Reason for Visit Chief Complaint wound Additional Source Comments (unrecognized sect ion and content) No Status Records FoundNo Status Records FoundNo Status Records FoundNo Status Records FoundNo Status Records FoundNo Status Records Found INFORMATION SOURCE (unrecogn ized section and content) DATE CREATED AUTHOR 09/06/2019 [facility] DATE CREATED AUTHOR AUTHOR'S ORGANIZ ATION 09/06/2019 [facility] DATE CREATED AUTHOR AUTHOR'S ORGANIZ ATION 09/28/2019 [facility] anthony Ruiz DATE CREATED AUTHOR AUTHOR'S ORGANIZ ATION 09/30/2020 [facility] DATE CREATED AUTHOR AUTHOR'S ORGANIZ ATION 02/17/2024 [facility] DATE CREATED AUTHOR AUTHOR'S ORGANIZ ATION 03/19/2025 [facility] Care Teams (unrecognized sec tion and content) Team Status: Active Member Role Status Dates Dr. Naresh Reddy MD Family Provider Active No Primary Care Physician Primary Care Provider Active Team Status: Inactive Member Role Status Dates Dr. David Lubin DO Emergency Provider Active No Primary Care Physician Primary Care Provider Active Goals (unrecognized section and content) Goals may be documented in a n alternate section Source Comments (unrecognize d section and content) In the event this informatio n is protected by the Federal Confidentiality of Alcohol and Drug Abuse Patient Records regulations: The Federal rules restrict any use of the information to criminally investigate or prosecute any alcohol or drug abuse patient.[facility] FOR RECORDS PERTAINING TO PATIENTS WHO ARE OR HAVE BEEN ENROLLED IN A CHEMICAL DEPENDENCY/SUBSTANCEABUSE PROGRAM, SOME INFORMATION MAY BE OMITTED. This clinical summary was aggregated from multiple sources. Caution should be exercised in using it in the provision of clinical care. This summary normalizes information from multiple sources, and as a consequence, information in this document may materially change the coding, format and clinical context of patient data. In addition, data may be omitted in some cases. CLINICAL DECISIONS SHOULD BE BASED ON THE PRIMARY CLINICAL RECORDS. [employer] provides no warranty or guarantee of the accuracy or completeness of information in this document.
[2025-03-30 12:27] LABS: Absolute Neutrophil Count 2.8 X10^3/uL (2.0-7.7); Basophil# 0.04 X10^3/uL; Basophil% 0.8 % (0-1); Eosinophil# 0.24 X10^3/uL; Eosinophils% 4.9 % (0-5); Hematocrit 44.1 % (40-54); Hemoglobin 14.6 g/dL (13.0-16.5); Lymphocyte % 26.7 % (19-41); Mean Corp Hgb Conc 33.1 g/dL (32-36); Mean Corpuscular Hgb 29.4 pg (27.0-32.0); Mean Corpuscular Volume 88.9 fL (80-94); Monocyte% 10.3 % (0-10); NRBC Flagged by Analyzer 0 % (0-5); Neutrophil # 2.77 X10^3/uL (2.7-7.7); Neutrophil % 57.1 % (47-70); Platelet Count 192 K/mm3 (150-450); RBC Distribution Width CV 12.7 % (11.6-14.6); RBC Distribution Width SD 41.2 fl (35.1-43.9); Red Blood Count 4.96 M/mm3 (4.6-6.2); White Blood Count 4.9 K/mm3 (4.4-11.0)
[2025-03-30 13:05] LABS: Magnesium 2.2 mg/dL (1.5-2.2)
[2025-03-30 18:18] LABS: ALB/GLOB Ratio 1.8 RATIO (0.9-2.4); AST(SGOT) 20 U/L (<=37); Alanine Aminotransfer ALT/SGPT 16 U/L (<=46); Albumin, Serum 4.6 g/dL (3.5-5.0); Alkaline Phosphatase 53 U/L (40-129); Anion Gap 11 (5-15); BUN 15 mg/dL (4-19); BUN/Creat Ratio 15.8 RATIO (10-20); Calcium,Total 9.7 mg/dL (7.6-11.0); Carbon Dioxide 25.9 mmol/L (21.0-32.0); Chloride 103 mmol/L (98-108); Creatinine, Serum 0.95 mg/dL (0.70-1.20); EST Glomerular Filtration Rate 110 (>60); Globulin 2.5 g/dL (2.2-4.2); Glucose 94 mg/dL (70-99); Potassium 4.4 mmol/L (3.3-5.1); Protein, Total 7.1 g/dL (5.9-8.4); Sodium Level 139 mmol/L (133-145); Vitamin D,25 Hydroxy 26.1 ng/mL (30-100)
[2025-03-31 15:53] LABS: Cholesterol 154 mg/dL (<=200); High Density Lipoprotein 62 mg/dL; Low Density Lipoprotein Calc. 80 mg/dL; Total Bilirubin 1.06 mg/dL (0.00-1.30); Triglycerides 62 mg/dL; Very Low Density Lipoprotein 12 mg/dL (5-40); cholesterol:hdl ratio screen 2.48
== END | disposition home or self-care (01) ==
PROVIDERS: PCP Nurse Practitioner Family; Visit Provider Nurse Practitioner Family
DX: Z00.01 Encounter for general adult medical examination with abnormal findings (principal); R25.2 Cramp and spasm
CPT/HCPCS: 36415; 80053; 80061; 82306; 83735; 85025